=== PATIENT | female | born 1955 | race Caucasian/White ===

== ENCOUNTER 2016-03-09 14:07 | Outpatient (CLI) | payer BC ==
[~2016-03-09 14:07] MED LIST: AMIT10TA6 PO; ASPI-999 PO; ATEN25TA PO; ATEN50TA PO; ATOR40TA70 PO; ATR20T PO; CALC-787 PO; ESTR0.3T PO; MELO-198 PO; MELO15TA39 PO; METO100T6 PO; OMEP10CA4 PO; OMEP20CA12 PO
--- OUTSIDE RECORDS SUMMARY | 2016-03-09 14:10 | XMS REPORT | Continuity of Care Document ---
Author Author [facility] Organization [facility] Address Unknown Phone Unavailable Care Team Providers Care Terrestrial Ecologist Name Role Phone GEORGE SILVESTRE MD PCP Insurance Providers Payer Name Policy Number Subscriber Name Relationship [facility] [id number] Jovanny Carrasco A 01 Advance Directives Directive Response Recorded Date/Time Advance Directives Yes 08/11/15 5:50am Health Care Power of Motor Assembler Yes 08/11/15 5:50am Organ Donor No 08/11/15 5:50am Resuscitation Status Full Code 08/11/15 5:50am Problems Active Problems Medical Problem Onset Date Status Chest pain Unknown Acute Dyspnea Unknown Acute Hypertensive urgency Unknown Acute Medications Current Home Medications Medication Dose Units Route Directions Days/Qty Instructions Start Date Calcium Citrate/Vitamin D3 1 Each 1 Tab Oral Daily 05/16/12 Metoprolol Succinate 100 Mg 100 Mg Oral Daily 08/11/15 Aspirin 81 Mg 81 Mg Oral Daily 08/11/15 Meloxicam 15 Mg 15 Mg Oral Daily 08/11/15 Estrogens, Conjugated 0.3 Mg 0.3 Mg Oral Daily 08/11/15 Omeprazole 20 Mg 20 Mg Oral Daily 08/11/15 Atorvastatin Calcium 40 Mg 20 Mg Oral Bedtime TAKES 1/2 OF A (40 MG) TABLET 08/11/15 Amitriptyline Hcl 10 Mg 10 Mg Oral Daily 08/11/15 Past Home Medications Medication Directions Ordered Status Atorvastatin Calcium 20 Mg Tablet, 1 Each Oral Daily 05/16/12 Discontinued Omeprazole 10 Mg Capsule.dr, 10 Mg Oral Daily 05/16/12 Discontinued Amitriptyline Hcl (Elavil) 10 Mg Tablet, 1 Each Oral Daily 05/16/12 Discontinued Estrogens Conjugated 0.3 Mg Tab, 0.3 Mg Oral Daily 05/16/12 Discontinued Meloxicam (Mobic) 7.5 Mg Tablet, 1 Each Oral Daily 05/16/12 Discontinued Atenolol 25 Mg Tablet, 1 Each Oral Bedtime 05/22/12 Discontinued Atenolol 50 Mg Tablet, 25 Mg Oral Bedtime 08/11/15 Discontinued Social History Social History Problem Response Recorded Date/Time Recreational Drug Use No 08/11/2015 5:51am Recent Foreign Travel No 08/11/2015 5:54am Recent Infectious Disease Exposure No 08/11/2015 5:51am Sexually Transmitted Disease No 08/11/2015 5:51am HIV/AIDS No 08/11/2015 5:51am Smoking Status Current Everyday Smoker 08/11/2015 5:52am Query Response Start Date Stop Date Smoking Status Current Everyday Smoker Hospital Discharge Instructions Patient Instructions Physician Instructions Follow Up/Plan Follow up with Dr Perez in 1-2 weeks CARDIAC CATH DISCHARGE INSTRUCTIONS *Hold Metformin for 48 hours post heart cath. ACTIVITY * Go Home directly and rest. * Limit activity of the leg (or wrist if it was used) for 7 days including aerobics, swimming, jogging, bicycling, etc. * Restrict stair-climbing for 7 days if possible, if not, climb up with your non-cath leg, then bring together on the same step. * Avoid lifting, pushing, pulling or excessive movement of the affected extremity for 7 days. * Customary sexual activity may be resumed after 2 days-use caution not to use a position that strains or causes pain to the affected extremity. * No driving for 24 hours. * NO SMOKING. * Avoid straining for bowel movements for 7 days. * Gentle walking on level ground is allowed. * Returning to work will depend on the type of procedure and the results. Your doctor will discuss this with you. CALL YOUR DOCTOR FOR ANY OF THE FOLLOWING: *If bleeding from the puncture site occurs- Apply gentle pressure to site with clean cloth and call your doctor or EMS. * If a knot or lump forms under the skin, increases in size, or causes pain. * If bruising appears to be worsening or moving further down your leg instead of disappearing. * Temperature above 101 F. CARE OF YOUR GROIN INCISION; * Bruising or purple discoloration of the skin near the puncture site is common. * You may shower only, no bathtub bathing for 5 days. Be careful to avoid slipping as your leg may feel stiff. * If a closure device was used on your femoral artery, please see the attached guide regarding care of the device and your leg. * REMOVE the dressing from your groin the next day after your procedure in the shower. CARE OF YOUR WRIST INCISION; * Bruising or purple discoloration of the skin near the puncture site is common. * You may shower. * DO NOT submerge wrist. * Remove dressing in 24 hours. Discharge Diet: Cardiac Diet Plan of Care Discharge Date 08/11/15 2:15pm Instructions/Education Provided Right Heart Catheterization (DC) Prescriptions See Medication Section Follow-up Orders 2D Echo w Doppler/Color Flow Functional Status Query Response Date Recorded Patient Orientation Person Place Time Situation Normal For Age August 12, 2015 2:03pm Comprehension Ability Understands Concepts August 11, 2015 8:00am Allergies, Adverse Reactions, Alerts Allergen Type Severity Reaction Status Last Updated codeine Allergy Unknown Active 08/11/15 sulfa Allergy Unknown Active 08/11/15 Immunizations Name Given Type Tetanus Booster (TDap) Unknown Historical Vital Signs Acute Vital Signs Vital Response Date/Time Temperature (Fahrenheit) 98.6 degrees F (97.6 - 99.5) 08/11/2015 2:15pm Temperature (Calculated Celsius) 37.36367 degrees C (36.4 - 37.5) 08/11/2015 1:30pm Temperature Source Tympanic 08/11/2015 2:15pm Pulse Rate (adult) 67 bpm (60 - 90) 08/11/2015 2:15pm Respiratory Rate 20 bpm (12 - 24) 08/11/2015 2:15pm O2 Sat by Pulse Oximetry 100 % (88 - 100) 08/11/2015 2:15pm Blood Pressure 135/55 mm Hg 08/11/2015 2:15pm Blood Pressure Mean 81 mm Hg 08/11/2015 1:30pm Pain Pain Intensity 0 08/11/2015 1:30pm Height (Feet) 5 feet 08/11/2015 5:54am Height (Inches) 3.00 inches 08/11/2015 5:54am Height (Calculated Centimeters) 160.427261 cm 08/11/2015 5:54am Weight (Pounds) 139 pounds 08/11/2015 5:54am Weight (Ounces) 7.0 oz 08/11/2015 5:54am Weight (Calculated Grams) 66425.787 gm 08/11/2015 5:54am Weight (Calculated Kilograms) 63.248359 kilograms 08/11/2015 5:54am Calculated BMI 24.7 08/11/2015 5:54am Results Laboratory Results Test Name Result Units Flags Reference Collection Date/Time Result Date/ Time Comments White Blood Count 8.8 10^3/uL 4.3-11.0 08/11/2015 3:40am 08/11/2015 3: 44am Red Blood Count 4.46 10^6/uL 4.35-5.85 08/11/2015 3:40am 08/11/2015 3: 44am Hemoglobin 12.3 G/DL 11.5-16.0 08/11/2015 3:40am 08/11/2015 3:44am Hematocrit 37 % 35-52 08/11/2015 3:40am 08/11/2015 3:44am Mean Corpuscular Volume 82 FL 80-99 08/11/2015 3:40am 08/11/2015 3: 44am Mean Corpuscular Hemoglobin 28 PG 25-34 08/11/2015 3:40am 08/11/2015 3: 44am Mean Corpuscular Hemoglobin Concent 34 G/DL 32-36 08/11/2015 3:40am 09/2015 3:44am Red Cell Distribution Width 13.6 % 10.0-14.5 08/11/2015 3:40am 2015 3:44am Platelet Count 262 10^3/uL 130-400 08/11/2015 3:40am 08/11/2015 3:44am Mean Platelet Volume 9.9 FL 7.4-10.4 08/11/2015 3:40am 08/11/2015 3: 44am Neutrophils (%) (Auto) 39 % L 42-75 08/11/2015 3:40am 08/11/2015 3:44am Lymphocytes (%) (Auto) 50 % H 12-44 08/11/2015 3:40am 08/11/2015 3:44am Monocytes (%) (Auto) 9 % 0-12 08/11/2015 3:40am 08/11/2015 3:44am Eosinophils (%) (Auto) 2 % 0-10 08/11/2015 3:40am 08/11/2015 3:44am Basophils (%) (Auto) 0 % 0-10 08/11/2015 3:40am 08/11/2015 3:44am Neutrophils # (Auto) 3.4 X 10^3 1.8-7.8 08/11/2015 3:40am 08/11/2015 3: 44am Lymphocytes # (Auto) 4.4 X 10^3 H 1.0-4.0 08/11/2015 3:40am 08/11/2015 3: 44am Monocytes # (Auto) 0.8 X 10^3 0.0-1.0 08/11/2015 3:40am 08/11/2015 3: 44am Eosinophils # (Auto) 0.2 10^3/uL 0.0-0.3 08/11/2015 3:40am 08/11/2015 3 :44am Basophils # (Auto) 0.0 10^3/uL 0.0-0.1 08/11/2015 3:40am 08/11/2015 3: 44am Prothrombin Time 11.6 SEC L 12.2-14.7 08/11/2015 3:40am 08/11/2015 3: 57am INR Comment 0.9 0.8-1.4 08/11/2015 3:40am 08/11/2015 3:57am INTERPRETIVE DATA SUGGESTED THERAPEUTIC RANGE FOR INR'S: VENOUS THROMBOSIS, PULMONARY EMBOLISM, OR PREVENTION OF SYSTEMIC EMBOLISM (EG. IN ATRIAL FIBRILLATION): 2.0 - 3.0 MECHANICAL PROSTHETIC HEART VALVES: 2.5 - 3.5* *NOTE: INR'S UP TO 4.5 MAY BE NECESSARY IN SELECTED GROUPS OF HIGH RISK PATIENTS. [employer] OF CHEST PHYSICIANS CONSENSUS CONFERENCE ON ANTITHROMBOTIC THERAPY (2000). Activated Partial Thromboplast Time 28 SEC 24-35 08/11/2015 3:40am 09/2015 3:57am D-Dimer < 0.27 UG/ML 0.00-0.49 08/11/2015 3:40am 08/11/2015 4:20am Sodium Level 138 MMOL/L 135-145 08/11/2015 3:40am 08/11/2015 4:05am Potassium Level 4.8 MMOL/L 3.6-5.0 08/11/2015 3:40am 08/11/2015 4:05am Chloride Level 103 MMOL/L 98-107 08/11/2015 3:40am 08/11/2015 4:05am Carbon Dioxide Level 25 MMOL/L 21-32 08/11/2015 3:40am 08/11/2015 4: 05am Anion Gap 10 MMOL/L 5-14 08/11/2015 3:40am 08/11/2015 4:05am Blood Urea Nitrogen 12 MG/DL 7-18 08/11/2015 3:40am 08/11/2015 4:05am Creatinine 0.76 MG/DL 0.60-1.30 08/11/2015 3:40am 08/11/2015 4:05am BUN/Creatinine Ratio 16 08/11/2015 3:40am 08/11/2015 4:05am Estimat Glomerular Filtration Rate > 60 08/11/2015 3:40am 2015 4:05am GFR INTERPRETIVE DATA UNITS FOR ESTIMATED GFR (eGFR): mL/min/1.73 M2 REFERENCE RANGE FOR ESTIMATED GFR (eGFR) eGFR NORMAL eGFR >60 MODERATELY DECREASED eGFR 30-59 SEVERLY DECREASED eGFR 15-29 KIDNEY FAILURE <15 (OR DIALYSIS) Glucose Level 99 MG/DL 70-105 08/11/2015 3:40am 08/11/2015 4:05am Calcium Level 9.8 MG/DL 8.5-10.1 08/11/2015 3:40am 08/11/2015 4:05am Magnesium Level 2.7 MG/DL H 1.8-2.4 08/11/2015 3:40am 08/11/2015 4:05am Total Bilirubin 0.3 MG/DL 0.1-1.0 08/11/2015 3:40am 08/11/2015 4:05am Alkaline Phosphatase 69 U/L 40-136 08/11/2015 3:40am 08/11/2015 4:05am Aspartate Amino Transf (AST/SGOT) 20 U/L 5-34 08/11/2015 3:40am 2015 4:05am Alanine Aminotransferase (ALT/SGPT) 8 U/L 0-55 08/11/2015 3:40am 2015 4:05am Troponin I < 0.30 NG/ML <0.30 08/11/2015 3:40am 08/11/2015 4:11am Troponin I < 0.30 NG/ML <0.30 08/11/2015 9:42am 08/11/2015 10:12am Myoglobin 24.3 NG/ML 10.0-92.0 08/11/2015 3:40am 08/11/2015 4:11am Total Protein 6.9 G/DL 6.4-8.2 08/11/2015 3:40am 08/11/2015 4:05am Albumin 4.5 G/DL 3.2-4.5 08/11/2015 3:40am 08/11/2015 4:05am Microbiology Results Procedure Source Result Collection Date/Time Result Date/Time MRSA Screen Nasal MRSA not isolated 08/11/2015 6:50am 08/12/2015 12:22pm Procedures Procedure Status Date Provider(s) Tracing only of electrocardiogram Completed 08/11/15 ALEX PALACIOS MD Encounters Encounter Location Arrival/Admit Date Discharge/Depart Date Attending Provider Departed [facility] 08/11/15 5:08am 2:15pm MORA PEREZ FACP CCDS FAC Recent Diagnosis Chest pain Dyspnea Hypertensive urgency
== END 2016-03-09 14:20 | disposition home or self-care (01) ==
LOC: SLEEP 14:07
PROVIDERS: ATTEND Internal Medicine Critical Care Medicine
DX: G47.33 Obstructive sleep apnea (adult) (pediatric) (principal)

== ENCOUNTER 2016-03-15 10:00 | Outpatient (CLI) | payer BC ==
--- OUTSIDE RECORDS SUMMARY | 2016-03-14 05:44 | XMS REPORT | Continuity of Care Document ---
Author Author [facility] Organization [facility] Address Unknown Phone Unavailable Care Team Providers Care Head Soft Sugar Operator Name Role Phone GEORGE SILVESTRE MD PCP Insurance Providers Payer Name Policy Number Subscriber Name Relationship [facility] [id number] Jovanny Carrasco A 01 Advance Directives Directive Response Recorded Date/Time Advance Directives Yes 08/11/15 5:50am Health Care Power of Tool Rental Technician Yes 08/11/15 5:50am Organ Donor No 08/11/15 [...] - 99.5) 08/11/2015 2:15pm Temperature (Calculated Celsius) 37.49270 degrees C (36.4 - 37.5) 08/11/2015 1:30pm [...] 3.00 inches 08/11/2015 5:54am Height (Calculated Centimeters) 160.811002 cm 08/11/2015 5:54am Weight (Pounds) 139 pounds 08/11/2015 5:54am Weight (Ounces) 7.0 oz 08/11/2015 5:54am Weight (Calculated Grams) 42960.787 gm 08/11/2015 5:54am Weight (Calculated Kilograms) 63.075188 kilograms 08/11/2015 5:54am Calculated BMI 24.7 08/11/2015 [...] SELECTED GROUPS OF HIGH RISK PATIENTS. SIX[employer] OF CHEST PHYSICIANS CONSENSUS CONFERENCE ON [...] Attending Provider Departed Surgical Day [facility] 08/11/15 5:08am 2:15pm MORA PEREZ FACP CCDS FAC Recent Diagnosis Chest pain Dyspnea Hypertensive urgency
[~2016-03-15] VITALS: Ht 160 cm; Wt 64.6 kg
--- OUTSIDE RECORDS SUMMARY | 2016-03-15 10:16 | XMS REPORT | Continuity of Care Document ---
Author Author [facility] Organization [facility] Address Unknown Phone Unavailable Care Team Providers Care Principal Software Engineer Name Role Phone GEORGE SILVESTRE MD PCP Insurance Providers Payer Name Policy Number Subscriber Name Relationship [facility] [id number] Jovanny Carrasco A 01 Advance Directives Directive Response Recorded Date/Time Advance Directives Yes 08/11/15 5:50am Health Care Power of Quality Auditor Yes 08/11/15 5:50am Organ Donor No 08/11/15 [...] - 99.5) 08/11/2015 2:15pm Temperature (Calculated Celsius) 37.30848 degrees C (36.4 - 37.5) 08/11/2015 1:30pm [...] 3.00 inches 08/11/2015 5:54am Height (Calculated Centimeters) 160.140497 cm 08/11/2015 5:54am Weight (Pounds) 139 pounds 08/11/2015 5:54am Weight (Ounces) 7.0 oz 08/11/2015 5:54am Weight (Calculated Grams) 98047.787 gm 08/11/2015 5:54am Weight (Calculated Kilograms) 63.869496 kilograms 08/11/2015 5:54am Calculated BMI 24.7 08/11/2015 [...] SELECTED GROUPS OF HIGH RISK PATIENTS. [employer] [place] [employer] OF CHEST PHYSICIANS CONSENSUS CONFERENCE ON [...] Attending Provider Departed Surgical Day [facility] 08/11/15 5:08am 2:15pm MORA PEREZ FACP CCDS FAC Recent Diagnosis Chest pain Dyspnea Hypertensive urgency
== END 2016-03-15 12:15 ==
LOC: PREOP 10:00
PROVIDERS: ATTEND Internal Medicine
DX: Z01.818 Encounter for other preprocedural examination (principal); Z12.11 Encounter for screening for malignant neoplasm of colon; R10.13 Epigastric pain

== ENCOUNTER 2016-03-18 06:55 | Day surgery (SDC) | payer BC ==
[~2016-03-18] VITALS: Ht 160 cm; Wt 64.6 kg
[~2016-03-18 06:55] MED LIST changes: +1/2 NS IV SOLUTION 1,000 ML IV ONE
--- OUTSIDE RECORDS SUMMARY | 2016-03-18 06:59 | XMS REPORT | Continuity of Care Document ---
Author Author [facility] Organization [facility] Address Unknown Phone Unavailable Care Team Providers Care Resort Manager Name Role Phone GEORGE SILVESTRE MD PCP Insurance Providers Payer Name Policy Number Subscriber Name Relationship [facility] [id number] Jovanny Carrasco A 01 Advance Directives Directive Response Recorded Date/Time Advance Directives Yes 08/11/15 5:50am Health Care Power of Agronomy Advisor Yes 08/11/15 5:50am Organ Donor No 08/11/15 [...] - 99.5) 08/11/2015 2:15pm Temperature (Calculated Celsius) 37.30923 degrees C (36.4 - 37.5) 08/11/2015 1:30pm [...] 3.00 inches 08/11/2015 5:54am Height (Calculated Centimeters) 160.850758 cm 08/11/2015 5:54am Weight (Pounds) 139 pounds 08/11/2015 5:54am Weight (Ounces) 7.0 oz 08/11/2015 5:54am Weight (Calculated Grams) 99442.787 gm 08/11/2015 5:54am Weight (Calculated Kilograms) 63.294228 kilograms 08/11/2015 5:54am Calculated BMI 24.7 08/11/2015 [...] SELECTED GROUPS OF HIGH RISK PATIENTS. [employer]IX[employer] [place] [employer] OF CHEST PHYSICIANS CONSENSUS CONFERENCE ON [...] Attending Provider Departed Surgical Day Care [facility] 08/11/15 5:08am 2:15pm MORA PEREZ FACP CCDS FAC Recent Diagnosis Chest pain Dyspnea Hypertensive urgency
--- OUTSIDE RECORDS SUMMARY | 2016-03-18 06:59 | XMS REPORT | Continuity of Care Document ---
Author Author [facility] Organization [facility] Address Unknown Phone Unavailable Care Team Providers Care Bull Gang Worker Name Role Phone GEORGE SILVESTRE MD PCP Insurance Providers Payer Name Policy Number Subscriber Name Relationship [facility] [id number] Jovanny Carrasco A 01 Advance Directives Directive Response Recorded Date/Time Advance Directives Yes 08/11/15 5:50am Health Care Power of Plastic Molder Yes 08/11/15 5:50am Organ Donor No 08/11/15 [...] - 99.5) 08/11/2015 2:15pm Temperature (Calculated Celsius) 37.14909 degrees C (36.4 - 37.5) 08/11/2015 1:30pm [...] 3.00 inches 08/11/2015 5:54am Height (Calculated Centimeters) 160.528960 cm 08/11/2015 5:54am Weight (Pounds) 139 pounds 08/11/2015 5:54am Weight (Ounces) 7.0 oz 08/11/2015 5:54am Weight (Calculated Grams) 19091.787 gm 08/11/2015 5:54am Weight (Calculated Kilograms) 63.488663 kilograms 08/11/2015 5:54am Calculated BMI 24.7 08/11/2015 [...] SELECTED GROUPS OF HIGH RISK PATIENTS. SIX[employer] [place] [employer] OF CHEST PHYSICIANS CONSENSUS CONFERENCE ON [...] Attending Provider Departed Surgical Day Care [facility] 08/11/15 5:08am 2:15pm MORA PEREZ FACP CCDS FAC Recent Diagnosis Chest pain Dyspnea Hypertensive urgency
--- NOTE | 2016-03-18 07:15 | HISTORY AND PHYSICAL ---
DICTATING PHYSICIAN: Dr. Lenz DATE OF ADMISSION: 03/18/2016 REFERRING PHYSICIAN: Dr. Baer for screening colonoscopy. I performed her last colonoscopy which was her first 10 years ago, at which time no evidence for neoplasia or any other significant abnormalities were noted. She is not aware of any family history for colon cancer and has been in her usual state of health. She denies any evidence for rectal bleeding and bowel habit change. She has been having some epigastric discomfort, however, with reflux symptoms and occasional mild dysphasia and mild odynophagia. PAST MEDICAL HISTORY: 1. Significant for hypertension. 2. Hyperlipidemia. She had an echocardiogram done in August that revealed an estimated pulmonary artery pressure was elevated at [address] angio which revealed no significant pulmonary abnormalities and no evidence for pulmonary embolism. She had no structural heart problems; both right and left cardiac chamber dimensions function appeared to be normal and she denies increased dyspnea on exertion with usual exercise tolerance. She also denies orthopnea, PND or pedal edema. \ She underwent EGD evaluation 3-1/2 years ago, at which time she did not have peptic ulcer disease. Was positive for H. pylori on biopsy and underwent subsequent treatments. FAMILY HISTORY: Father of a heart attack at the age of 51. There is no other known early history of coronary disease and no reported history of GI tract malignancies. SOCIAL HISTORY: She has a history of social drinking and reported history in the past emergency room record reviewed of 6 cigarettes per day. We will need to question her about whether or not this is still the case. PHYSICAL EXAMINATION: Reveals a well-appearing white female in no acute distress. Initial blood pressure is 168/92 and, weight of 140.6 is unchanged from last office weight from 3-1/2 years ago. HEENT EXAMINATION: Unremarkable. NECK: Revealed no JVD, adenopathy or bruits. CHEST: Clear. CV: Revealed a regular rate and rhythm without murmur, S3 or S4. ABDOMEN: Soft, supple. There is mild epigastric discomfort to palpation without rebound or guarding. No masses or organomegaly was noted. No bruits were noted and bowel sounds are noted in 4 quadrants. EXTREMITIES: Extremities reveal no cyanosis, clubbing, or edema. ASSESSMENT: 1. The patient was set-up for screening colonoscopy on the 18 March and we will also proceed with EGD evaluation due to epigastric pain and reflux symptoms, refractory to proton pump inhibitor therapy. She also has a past history of H. pylori. Prep instructions with Miranda-prep kit were given and questions were answered. 2. Hypertension. Continue current medical therapy. 3. Hyperlipidemia, continue Lipitor. I thank you for the referral of this pleasant lady. Sincerely, James Lenz Job ID: [id number] Dictated Date: 02/19/2016 13:19:00 Railway Equipment Operator Date: 02/20/2016 09:29:32/lina
[2016-03-18] MEDS ORDERED: 1/2 NS IV SOLUTION 1,000 ML IV STA (07:19)
[2016-03-18 07:21] VITALS: BP 167/77
--- NOTE | 2016-03-18 07:26 | Pre-Op Note & Conscious Sedat ---
Pre-Operative Progress Note H&P Reviewed The H&P was reviewed, patient examined and no changes noted. Date H&P Reviewed: Mar 18, 2016 Time H&P Reviewed: 07:25 Conscious Sedation Pre-Proced ASA Class: 1 Airway Mallampati Classification: (enterprise appropriate class) I. II. III, IV Lungs Heart ASA score ASA 1: a normal healthy patient ASA 2: a patient with a mild systemic disease (mid diabetes, controlled hypertension, obesity ASA 3: a patient with a severe systemic disease that limits activity (angina , COPD, prior Myocardial infarction) ASA 4: a patient with an incapacitating disease that is a constant threat to life (CHF, renal failure) ASA 5: a moribund patient not expected to survive 24 hrs. (ruptured aneurysm) ASA 6: a declared brain patient whose organs are being harvested. For emergent operations, add the letter E after the classification Grade 1 Sedation Plan: Analgesia, Amnesia, Plan communicated to team members, Discussed options with patient/fam, Discussed risks with patient/fam Note The patient is an appropriate candidate to undergo the planned procedure, sedation, and anesthesia. The patient immediately re-assessed prior to indication. GEORGE SILVESTRE MD Mar 18, 2016 07:26
[2016-03-18] MEDS ORDERED: NALOXONE 0.4 MG/ML 1 ML (NARCAN) VIAL IVP PRN (07:30)
[2016-03-18] MEDS ORDERED: HURRICAINE EXT TUBE (BENZOCAINE) XX PRN (07:30)
[2016-03-18] MEDS ORDERED: FLUMAZENIL (ROMAZICON) 0.1 MG/ML 5 ML VIAL INJ PRN (07:30)
[2016-03-18] MEDS ORDERED: MIDAZOLAM 2 MG/2 ML (VERSED) VIAL ONE ×4 (07:35→08:11)
[2016-03-18] MEDS ORDERED: LIDOCAINE JELLY 2% (XYLOCAINE) 5 ML TUBE ONE (07:36)
[2016-03-18] MEDS ORDERED: fentaNYL INJECTION 100 MCG/2 ML AMP ONE ×2 (07:36)
[2016-03-18] MEDS: MIDAZOLAM 2 MG/2 ML (VERSED) VIAL IVP PRN ×4 (07:43→08:20)
[2016-03-18] MEDS: LIDOCAINE JELLY 2% (XYLOCAINE) 5 ML TUBE MM PRN ×2 (07:45→08:14)
[2016-03-18] MEDS: fentaNYL INJECTION 100 MCG/2 ML AMP IVP PRN ×3 (07:45→08:15)
[2016-03-18] MEDS ORDERED: HURRICAINE EXT TUBE (BENZOCAINE) ONE (07:55)
[2016-03-18 08:45] VITALS: BP_SYST 150; BP_DIAS 76; BP_DIAS 78
[2016-03-18 09:15] VITALS: BP 129/88
[2016-03-18 09:45] VITALS: BP 147/82
--- NOTE | 2016-03-18 10:31 | PROCEDURE REPORT ---
PROCEDURE PHYSICIAN: GEORGE SILVESTRE DATE OF PROCEDURE: 03/18/2016 PROCEDURE: The patient was placed on the left lateral decubitus position. Prior to undergoing colonoscopy, digital rectal evaluation was performed. Anal sphincter tone was normal and the perianal reflux was intact. No abnormalities were noted to digital inspection of the anal canal or distal rectal vault. The colonoscope was then inserted into the rectum and under direct visualization, advanced to cecum. The cecum was identified by ileocecal valve and cecal strap and the appendiceal orifice. Photographic documentation was obtained. Careful inspection was made as the colonoscope was withdrawn. FINDINGS: There no evidence for internal or external hemorrhoids. The rectum, sigmoid colon, descending colon, splenic flexure were unremarkable. No evidence for diverticular disease was noted. One diminutive 3 mm sessile polyp was noted in the distal transverse colon. It was biopsied and ablated, with no subsequent blood loss and submitted for histopathology. The remainder of the transverse colon, hepatic flexure, ascending colon and cecum were unremarkable. ASSESSMENT: One diminutive polyp was removed from the distal transverse colon with an otherwise unremarkable colonoscopy to the cecum. As long as there are no surprises on histopathology report, we will advocate consideration for repeat screening colonoscopy in 10 years. For evaluation of intermittent dysphasia, odynophagia, we will proceed with an EGD. EGD: The endoscope was inserted in the oral cavity and under visualization, the esophagus was intubated. The scope was passed down the esophagus, through the stomach, and second portion of the duodenum. Careful inspection was made as the endoscope was withdrawn. FINDINGS: Proximal and midesophagus were unremarkable. The Z line was proximally placed at 35 cm secondary to a small to moderate size hiatal hernia. There was no evidence to suggest Whelan's change or erosive esophagitis. The Z line was distinct. A biopsy was obtained and submitted for histopathology. The cardia, fundus and antrum of the stomach revealed no significant abnormality. The patient does have a history of H. pylori positivity so biopsy from the antrum was obtained and submitted for histopathology. The pylorus, the pyloric channel, the duodenal bulb, and second portion of the duodenum were unremarkable without evidence for duodenitis or peptic ulcer disease. ASSESSMENT: Small to moderate size hiatal hernia is present as noted above without evidence for erosive esophagitis or gross evidence to suggest Whelan's change. Biopsies from the gastroesophageal junction and antrum are pending at the patient does have a past history of H. pylori positivity. Job ID: [id number] Dictated Date: 03/18/2016 08:33:19 Gis Scientist Date: 03/18/2016 10:23:57 / lina
[2016-03-18 12:55] VITALS: BP 147/82
== END 2016-03-18 12:55 | disposition home or self-care (01) ==
LOC: SDC 06:55
PROVIDERS: ATTEND Internal Medicine
DX: Z12.11 Encounter for screening for malignant neoplasm of colon (principal); D12.3 Benign neoplasm of transverse colon; K29.50 Unspecified chronic gastritis without bleeding; B96.81 Helicobacter pylori [H. pylori] as the cause of diseases classified elsewhere; K44.9 Diaphragmatic hernia without obstruction or gangrene

== ENCOUNTER → 2016-11-03 | Outpatient (CLI) | payer BC ==
[~2016-11-03] MED LIST changes: -1/2 NS IV SOLUTION 1,000 ML IV ONE
== END ==
LOC: CARD 13:46
PROVIDERS: ATTEND Internal Medicine Cardiovascular Disease
DX: I27.2 Other secondary pulmonary hypertension (principal); I10 Essential (primary) hypertension; E78.4 Other hyperlipidemia; G47.33 Obstructive sleep apnea (adult) (pediatric)
CPT/HCPCS: 93306

== ENCOUNTER → 2017-02-16 | Outpatient (CLI) | payer BC ==
--- NOTE | 2017-02-16 11:38 | Diagnostic Imaging Report ---
CLINICAL INDICATION: Patient states her knee started hurting on the medial side one morning when she got up. No recent injury or trauma. EXAM: X-ray of the left knee, 3 views. COMPARISON: None. FINDINGS: There is no acute fracture or dislocation. There is no knee effusion. There is mild medial compartment narrowing and minimal spurring involving the medial compartment. Otherwise, the remainder of the left knee is unremarkable. IMPRESSION: 1: There is no acute fracture or dislocation. 2: Minimal degenerative disease of the medial aspect of the left knee. Dictated by: Dictated on workstation # [id number]
== END ==
LOC: RAD 10:37
PROVIDERS: ATTEND Urology
DX: M25.562 Pain in left knee (principal)
CPT/HCPCS: 73562

== ENCOUNTER 2018-03-29 18:30 | Emergency (ER) | payer BC | END 2018-03-29 20:30 | disposition home or self-care (01) | LOC: ER 18:30 ==

== ENCOUNTER → 2018-09-13 | Outpatient (CLI) | payer BC ==
[~2018-09-13] MED LIST changes: +ALPR0.254; +ASPI-586 PO; +ESTR1TAB24; +IRBE150T26; +OMEP20TA33 PO; +TRAM50TA2
== END ==
LOC: CARD 12:47
PROVIDERS: ATTEND Internal Medicine Cardiovascular Disease
DX: E78.5 Hyperlipidemia, unspecified (principal); I10 Essential (primary) hypertension; I27.21 Secondary pulmonary arterial hypertension
CPT/HCPCS: 93306

== ENCOUNTER → 2020-03-27 | Outpatient (CLI) | payer MEDICARE ==
[~2020-03-27] MED LIST changes: +ALPR.25T; -ALPR0.254; +IRBE150T23; -IRBE150T26; -OMEP20CA12 PO; +OMEP20CA18 PO; -TRAM50TA2; +TRM50T
--- NOTE | 2020-03-27 10:41 | Diagnostic Imaging Report ---
INDICATION: Neck pain as well as right shoulder pain. TIME OF EXAM: 09:57 a.m. EXAMINATION: Three views of the cervical spine were obtained. FINDINGS: Curvature and alignment of the cervical spine is normal. There is some degenerative disc disease at C5-C6 level with disc space narrowing and marginal spurring. There is generalized cervical facet arthropathy. Prevertebral tissues are within normal limits. Odontoid appears intact. No fractures are seen. IMPRESSION: Cervical spondylosis. No acute bony abnormality is detected. Dictated by: Dictated on workstation # [id number]
--- NOTE | 2020-03-27 10:42 | Diagnostic Imaging Report ---
INDICATION: Right shoulder pain. TIME OF EXAM: 10:01 a.m. EXAMINATION: Three views of the right shoulder were obtained. FINDINGS: Glenohumeral and acromioclavicular alignment are normal. Acromiohumeral space is normal. No fracture or dislocation is identified. IMPRESSION: No acute bony abnormality is detected. Dictated by: Dictated on workstation # [id number]
--- NOTE | 2020-03-27 10:43 | Diagnostic Imaging Report ---
INDICATION: Right arm pain. TIME OF EXAM: 10:03 a.m. EXAMINATION: Two views of the right humerus were obtained. FINDINGS: Alignment at the shoulder and elbow is normal. Humerus is intact. No fractures are seen. No osteolytic or blastic lesions are seen. Soft tissues are unremarkable. IMPRESSION: No acute bony abnormality is detected. Dictated by: Dictated on workstation # [id number]
== END ==
LOC: RAD 09:36
PROVIDERS: ATTEND Urology
DX: M47.812 Spondylosis without myelopathy or radiculopathy, cervical region (principal)
CPT/HCPCS: 72040; 73030; 73060

== ENCOUNTER → 2021-04-22 | Outpatient (CLI) | payer MEDICARE ==
[~2021-04-22] MED LIST changes: +AMT10T PO
== END ==
LOC: LABNPT 07:50
PROVIDERS: ATTEND Urology
DX: Z20.822 Contact with and (suspected) exposure to COVID-19 (principal)
CPT/HCPCS: 87636

== ENCOUNTER → 2021-07-19 | Outpatient (CLI) | payer MEDICARE ==
--- NOTE | 2021-07-19 16:10 | Diagnostic Imaging Report ---
INDICATION: Routine screening. COMPARISON: 06/09/2020 and 05/07/2019. TECHNIQUE: 2D and 3D bilateral screening mammography was performed with CAD. FINDINGS: Scattered fibroglandular densities are identified bilaterally. The parenchymal pattern is stable. No mass or malignant-appearing microcalcifications are seen. The axillae are unremarkable. IMPRESSION: No mammographic features suspicious for malignancy are identified. ACR BI-RADS Category 1: Negative. Result letter will be mailed to the patient. Note: At least 10% of breast cancer is not imaged by mammography. Dictated by: Dictated on workstation # [id number]
== END ==
LOC: RAD 10:30
PROVIDERS: ATTEND Urology
DX: Z12.31 Encounter for screening mammogram for malignant neoplasm of breast (principal)
CPT/HCPCS: 77063; 77067

== ENCOUNTER → 2021-11-04 | Outpatient (CLI) | payer MEDICARE ==
--- NOTE | 2021-11-04 13:51 | Diagnostic Imaging Report ---
PROCEDURE: MRI lumbar spine. TECHNIQUE: Multiplanar, multisequence MRI of the lumbar spine was performed without contrast. INDICATION: Chronic low back pain EXAMINATION: Lumbar spine MRI without contrast 11/04/2021. FINDINGS: There is a mild scoliotic deformity of the spine. There is grade 1 anterolisthesis at L4-L5. Minimal grade 1 retrolisthesis noted at L2-L3. Remaining alignment appears maintained. Tip of the conus unremarkable in appearance and location. There are large T1 and T2 hyperintense lesions which are almost imperceptible on the fat-saturated sequence within the T11 and T12 vertebral bodies consistent with hemangiomas. L1-L2: There is intervertebral disc space narrowing and disc desiccation. There is bilateral facet and ligamentum flavum hypertrophy. There is a mild broad-based bulging disc. There is no significant central stenosis. There is moderate bilateral neural foraminal narrowing. L2-L3: There is intervertebral disc space narrowing and disc desiccation. There is bilateral facet and ligamentum flavum hypertrophy. There is a mild left paracentral bulging disc. There is secondary narrowing of the left lateral recess with no significant central stenosis. There is moderate to severe left and mild right neural foraminal narrowing. L3-L4: There is intervertebral disc space narrowing and disc desiccation. There is bilateral facet and ligamentum flavum hypertrophy. There is moderate central stenosis secondary to a broad-based bulging disc. There is narrowing of the left lateral recess. There is moderate bilateral neural foraminal stenosis. L4-L5: There is intervertebral disc space narrowing and disc desiccation. There is bilateral facet and ligamentum flavum hypertrophy. There is a broad-based bulging disc containing a diffuse left annular tear. There are cystic changes adjacent to the right facet consistent with synovial cysts. Findings cause [id number] severe central stenosis with narrowing of the lateral recesses sees right worse than left. There is likely encroaching upon the transiting right nerve root. There is moderate left and severe right neural foraminal stenosis. L5-S1: There is intervertebral disc space narrowing and disc desiccation. There is bilateral facet and ligamentum flavum hypertrophy. There is a broad-based bulging disc with secondary moderate central stenosis. There is narrowing of the lateral recesses left greater than right. There is moderate left and severe right neural foraminal stenosis. Endplate changes at both L4-L5 and L5-S1 consistent with Modic type I findings. The visualized intra-abdominal structures unremarkable. IMPRESSION: 1. Multilevel diffuse degenerative findings as detailed above with bulging disc material and facet hypertrophy causing near severe central stenosis at L4-L5 and narrowing of the lateral recesses, right worse than left. Dictated by: Dictated on workstation # [id number]
== END ==
LOC: RAD 12:30
PROVIDERS: ATTEND Urology
DX: M47.817 Spondylosis without myelopathy or radiculopathy, lumbosacral region (principal); M51.37 Other intervertebral disc degeneration, lumbosacral region; M48.07 Spinal stenosis, lumbosacral region; M51.27 Other intervertebral disc displacement, lumbosacral region
CPT/HCPCS: 72148

== ENCOUNTER 2022-01-25 10:15 | Outpatient (RCR) | payer MEDICARE | END 2022-02-02 | disposition home or self-care (01) | PROVIDERS: ATTEND Urology | DX: M48.061 Spinal stenosis, lumbar region without neurogenic claudication (principal); I10 Essential (primary) hypertension ==

== ENCOUNTER 2022-02-17 11:23 | Outpatient (RCR) | payer MEDICARE | END 2022-03-05 | disposition home or self-care (01) | PROVIDERS: ATTEND Urology | DX: M48.061 Spinal stenosis, lumbar region without neurogenic claudication (principal); I10 Essential (primary) hypertension ==

== ENCOUNTER 2022-04-04 10:25 | Outpatient (RCR) | payer MEDICARE | END 2022-04-05 | disposition home or self-care (01) | PROVIDERS: ATTEND Urology | DX: M48.061 Spinal stenosis, lumbar region without neurogenic claudication (principal) ==

== ENCOUNTER 2022-04-28 14:11 | Outpatient (RCR) | payer MEDICARE | END 2022-04-28 17:00 | disposition home or self-care (01) | PROVIDERS: ATTEND Urology | DX: M48.061 Spinal stenosis, lumbar region without neurogenic claudication (principal) ==